=== PATIENT | female | born 1980 | race Caucasian/White ===

== ENCOUNTER 2017-04-04 10:50 | Emergency (ER) | payer SELFPAY ==
[~2017-04-04] VITALS: Ht 167.6 cm; Wt 74.0 kg
[2017-04-04] MEDS ORDERED: ZIPRASIDONE 20 MG INJ IM ONE ×2 (10:52→11:00)
[2017-04-04] MEDS ORDERED: PLEASE ENTER ALLERGIES MC SCH ×2 (11:30)
[2017-04-04] MEDS ORDERED: PLEASE ENTER HEIGHT AND WEIGHT MC SCH (11:30)
[2017-04-04 11:38] LABS: ASPARTATE AMINO TRANSFERASE 31 U/L (15-37); BLOOD UREA NITROGEN 8 mg/dL (7-18)
[2017-04-04 11:45] LABS: ACETAMINOPHEN < 2 mcg/mL (10-30)
[2017-04-04 14:24] LABS: DAU SCREEN DISCLAIMER
[2017-04-04 15:03] VITALS: BP 118/70
[2017-04-04] MEDS ORDERED: POTASSIUM CHLORIDE 20 MEQ TAB.ER.PRT PO ONE (15:30)
[2017-04-04] MEDS ORDERED: POTASSIUM CHLORIDE 20 MEQ TAB.ER.PRT ONE (15:48)
== END 2017-04-04 15:51 | disposition home or self-care (01) ==
LOC: EDBD 10:50 → ED 15:45
DX: F15.951 Other stimulant use, unspecified with stimulant-induced psychotic disorder with hallucinations (principal)
CPT/HCPCS: 36415; 70450; 80053; 80307; 80329; 85025; 93005; 96372; 99285; J3486; G0480